=== PATIENT | female | born 1980 | race Caucasian/White ===

== ENCOUNTER 2017-02-28 09:51 | Inpatient (IN) | payer OTHER ==
[2017-02-24 12:55] VITALS: BMI 43.8
[2017-02-28] MEDS ORDERED: ACETAMINOPHEN INJECTION 100 ML IVPB ONE (10:55)
[2017-02-28] MEDS ORDERED: DEXAMETHASONE SOD PHOSPHATE 4 MG/1 ML VIAL ONE (11:25)
[2017-02-28] MEDS ORDERED: ROCURONIUM BROMIDE 50 MG/5 ML VIAL ONE (11:25)
[2017-02-28] MEDS ORDERED: PROPOFOL 20 ML ONE (11:25)
[2017-02-28] MEDS ORDERED: MIDAZOLAM HCL 2 MG/2 ML SINGLE DOSE VIAL ONE (11:25)
[2017-02-28] MEDS ORDERED: LIDOCAINE HCL/PF 2% SDV 5ML VIAL ONE (11:25)
[2017-02-28] MEDS ORDERED: ceFAZolin SODIUM 1 GM VIAL IVPB ONE (12:02)
[2017-02-28] MEDS ORDERED: LIDOCAINE HCL 2% JELLY (5 ML/TUBE) ONE (12:54)
[2017-02-28] MEDS ORDERED: NEOSTIGMINE METHYLSULFATE 0.5 MG/ML - 10 ML MDV ONE (12:57)
[2017-02-28] MEDS ORDERED: GLYCOPYRROLATE 0.2 MG/1 ML VIAL ONE ×2 (12:57)
[2017-02-28] MEDS ORDERED: ESMOLOL HCL 10 ML ONE (13:05)
[2017-02-28] MEDS ORDERED: BUPIVACAINE HCL/PF (5 MG/ML) 30 ML VIAL IJ ONE (13:35)
[2017-02-28] MEDS ORDERED: TRIMETHOBENZAMIDE HCL 200MG/2ML INJ IM PRN (13:54)
[2017-02-28] MEDS ORDERED: HYDROmorphone HCL CARPU-JECT 2 MG/1 ML DISP.SYRIN ONE (13:56)
[2017-02-28] MEDS: HYDROmorphone HCL CARPU-JECT 1 MG/1 ML DISP.SYRIN IVPB PRN ×3 (14:00→20:05)
[2017-02-28] MEDS ORDERED: METOCLOPRAMIDE HCL INJECTION 10 MG/2 ML VIAL IVPB SCH (14:00)
[2017-02-28] MEDS ORDERED: ONDANSETRON 4 MG/2 ML VIAL IVPUSH PRN (14:01)
[2017-02-28] MEDS ORDERED: HYDROmorphone HCL CARPU-JECT 1 MG/1 ML DISP.SYRIN IVPUSH PRN (14:01)
[2017-02-28] MEDS ORDERED: PROMETHAZINE HCL 25 MG/1 ML VIAL IVPUSH PRN (14:01)
[2017-02-28] MEDS ORDERED: FAMOTIDINE 20 MG/50 ML IVPB 50 ML IVPB ONE (14:12)
[2017-02-28] MEDS ORDERED: LACTATED RINGERS SOLUTION 1,000 ML IV SCH (14:15)
[2017-02-28] MEDS ORDERED: FAMOTIDINE 20 MG PREMIXED IVPB IVPB ONE (14:25)
[2017-02-28 14:46] LABS: MCH 30.2 pg (25.7-33.7); MCHC 32.8 g/dl (32.0-36.0); MEAN CELL VOLUME 92.2 fl (80-96); MEAN PLT VOLUME 7.5 fl (7.5-11.1); PLATELET COUNT 284 K/MM3 (134-434); RDW 13.8 % (11.6-15.6); WHITE BLOOD COUNT 18.6 K/mm3 (4.0-10.0)
[2017-02-28 15:17] LABS: ALBUMIN 3.5 g/dl (3.4-5.0); ANION GAP 9 (8-16); BILIRUBIN,TOTAL 0.3 mg/dL (0.2-1.0); CALCIUM 8.5 mg/dL (8.5-10.1); CO2 24 mmol/L (21-32); CREATININE 0.7 mg/dL (0.55-1.02); GLUCOSE,RANDOM 149 mg/dL (74-106); SGOT/AST 36 U/L (15-37); SGPT/ALT 37 U/L (12-78)
[2017-02-28 15:18] LABS: ALK PHOS 89 U/L (45-117)
--- NOTE | 2017-02-28 17:00 | HP ---
DATE OF ADMISSION: 02/28/2017 CHIEF COMPLAINT: Morbid obesity. HISTORY OF PRESENT ILLNESS: The patient is a 37-year-old woman with a history of morbid obesity and occasional hypertension that she had had for a long time despite multiple attempts at dietary weight loss. She received pulmonary, cardiology, nutritional evaluation and clearance prior to undergoing elective sleeve gastrectomy surgery. PAST MEDICAL HISTORY: Noncontributory except for mild sleep apnea and also occasional hypertension. Patient takes no medications. Patient has no allergies. REVIEW OF SYSTEMS: General: Within normal limits. Gastrointestinal: No nausea or vomiting. No GE reflux disease reported. Lungs: No wheezing reported. Cardiovascular: Within normal limits. Musculoskeletal: Within normal limits. Neurological: Within normal limits. PHYSICAL EXAMINATION: General: Patient is awake and alert, morbidly obese in no acute distress. HEENT: No masses palpated. Lungs: Clear bilaterally. Heart: Regular sinus rhythm. Abdomen: Positive for obesity, soft, nontender on palpation. Extremities: No edema. IMPRESSION: Morbid obesity. PLAN: Surgery for elective laparoscopic vertical sleeve gastrectomy. Mariah [id number]
[2017-02-28] MEDS: METOCLOPRAMIDE HCL INJECTION 10 MG/2 ML VIAL IVPB SCH (22:01)
[2017-02-28] MEDS: ENOXAPARIN NA (PORCINE) 40 MG/0.4 ML DISP.SYRIN SQ SCH (22:01)
[2017-02-28] MEDS: FAMOTIDINE 20 MG/50 ML IVPB 50 ML IVPB SCH (23:29)
[2017-03-01] MEDS: HYDROmorphone HCL CARPU-JECT 1 MG/1 ML DISP.SYRIN IVPB PRN ×3 (00:43→13:39)
[2017-03-01] MEDS: SODIUM CHLORIDE 1,000 ML IV SCH ×2 (03:17→13:40)
[2017-03-01] MEDS: METOCLOPRAMIDE HCL INJECTION 10 MG/2 ML VIAL IVPB SCH ×4 (03:18→21:16)
[2017-03-01 07:43] LABS: MCH 30.4 pg (25.7-33.7); MCHC 33.3 g/dl (32.0-36.0); MEAN CELL VOLUME 91.2 fl (80-96); MEAN PLT VOLUME 7.9 fl (7.5-11.1); PLATELET COUNT 286 K/MM3 (134-434); RDW 13.9 % (11.6-15.6); WHITE BLOOD COUNT 16.7 K/mm3 (4.0-10.0)
[2017-03-01 08:31] LABS: ALBUMIN 3.1 g/dl (3.4-5.0); ANION GAP 7 (8-16); CALCIUM 8.2 mg/dL (8.5-10.1); CO2 26 mmol/L (21-32); GLUCOSE,RANDOM 81 mg/dL (74-106); SGOT/AST 27 U/L (15-37); SGPT/ALT 32 U/L (12-78)
--- NOTE | 2017-03-01 08:32 | PN ---
Progress Note (short form) - Note Progress Note: Post op day#1.S/P laproscopic gastric sleeve placement under Ga uneventful.Patient stable.No any anesthesia related problem.Patient DC from the anesthesia care.
[2017-03-01 08:34] LABS: ALK PHOS 77 U/L (45-117); BILIRUBIN,TOTAL 0.7 mg/dL (0.2-1.0); CREATININE 0.5 mg/dL (0.55-1.02); TOT PROT 6.4 g/dl (6.4-8.2)
[2017-03-01] MEDS: ENOXAPARIN NA (PORCINE) 40 MG/0.4 ML DISP.SYRIN SQ SCH ×2 (09:59→21:16)
[2017-03-01] MEDS: FAMOTIDINE 20 MG/50 ML IVPB 50 ML IVPB SCH ×2 (10:00→21:16)
--- NOTE | 2017-03-01 14:23 | OP ---
DATE OF OPERATION: 02/28/2017 PREOPERATIVE DIAGNOSIS: Morbid obesity. POSTOPERATIVE DIAGNOSIS: Morbid obesity. PROCEDURES PERFORMED: 1. Laparoscopic vertical sleeve gastrectomy. 2. Diagnostic laparoscopy. OPERATING SURGEON: Angel Mcnulty MD VENUE ATTENDANT: Anjel Blakely MD ANESTHESIA: General. OPERATIVE PROCEDURE: The patient was brought into the operating room and placed on the OR table in the supine position. All precautions were taken initially, including padding for the back and the feet, and Venodyne boots were placed on both lower extremities. At that point, the abdomen was prepped and draped in the usual manner. A Veress needle was placed in the left upper quadrant and a pneumoperitoneum was established. A number 12-bladeless trocar was placed in the left upper quadrant. Through that trocar, a laparoscopic camera was placed. Under direct vision, a number 15-bladeless trocar was placed in the midline in a supraumbilical position, followed by a number 5-bladeless trocar in the right upper quadrant, and a number 5-bladeless trocar below the left costal margin. A Kevin liver retractor was then placed in the epigastrium to retract the left lobe of the liver. The patient was then placed in a 20-degree reverse Trendelenburg position and the pylorus was noted on the distal stomach. Six centimeters was measured proximal to this and here on the greater curve, the stomach was lifted up by the operating surgeon as the diversional therapist's assistant surgeon retraced the gastrocolic ligament inferiorly. The LigaSure device was used to dissect the gastrocolic ligament off the greater curve of the stomach. This continued in a superior and vertical direction, dissecting the short gastric vessels off the stomach until the final short gastric vessel between the proximal fundus and the superior pole of spleen was divided. At this juncture, Anesthesia advanced a number-40 bougie. With the bougie held along the lesser curvature, a series of osito was performed with the first two being black load osito 6 cm in length along the bougie. This was followed by a series of purple load osito firing until the final staple was fired in the left upper quadrant and the greater curve was now completely detached from the lesser curve. It should be noted that prior to firing each stapler, both the anterior and the posterior kelly were checked that they were equal and in the area of the esophagogastric junction approximately 1 to 1.5 cm of serosa remained on the anterior and posterior kelly. At this juncture, saline was placed around the staple line, after Anesthesia inserted air through the bougie, which distended the stomach all the way to the pylorus, showing no obstruction and no leaks were noted. At this juncture, the number-12 and number-15 trocar sites were closed with endo closure device to prevent internal hernia and to prevent bleeding. Under direct vision, all trocars were removed and pneumoperitoneum released. All trocar sites 0.25% Marcaine were closed with 4-0 Biosyn in subcuticular fashion. Dressings were applied. The patient was awoken from anesthesia and transferred out of the operating room into the recovery room in stable condition. ESTIMATED BLOOD LOSS: 30 mL. Mariah [id number]
[2017-03-01] MEDS ORDERED: OXYCODONE/APAP 5/325MG COMBO TABLET PO PRN (15:57)
--- NOTE | 2017-03-01 16:03 | PN ---
Progress Note (short form) - Note Progress Note: POD#1 Afebrile; VSS P-60-92 BP-131/68 Pt doing well Ambulating very well slight nausea, no vomiting WBC-16.7 H/H-13/38.9 UGI- no leak, no obstruction P- PO clear liquids- 2 oz po tid Cont ambulation Cont DVT prophylaxis
[2017-03-01] MEDS: oxyCODONE HCL 5 MG TABLET PO PRN (21:17)
[2017-03-01] MEDS: ACETAMINOPHEN 325 MG TABLET (FP) PO PRN (21:26)
[2017-03-02] MEDS: METOCLOPRAMIDE HCL INJECTION 10 MG/2 ML VIAL IVPB SCH ×2 (03:17→09:30)
[2017-03-02] MEDS: oxyCODONE HCL 5 MG TABLET PO PRN (04:22)
[2017-03-02] MEDS: ACETAMINOPHEN 325 MG TABLET (FP) PO PRN (04:23)
[2017-03-02 06:03] VITALS: BP 118/72; PULSE 89; TEMP 97.6
[2017-03-02] MEDS: FAMOTIDINE 20 MG/50 ML IVPB 50 ML IVPB SCH (09:30)
[2017-03-02] MEDS: ENOXAPARIN NA (PORCINE) 40 MG/0.4 ML DISP.SYRIN SQ SCH (09:37)
--- NOTE | 2017-03-02 16:15 | PATH ---
Surgical Pathology Report Patient Name: ADRY GARCIA [facility]. Rec. #: [id number] /Age/Gender: 1980 (Age: 37) / F Account: [id number] Location: 4 W TELEMETRY U Taken: 02/28/2017 Received: 03/01/2017 Reported: 03/02/2017 Physicians: Angel Mcnulty M.D. Specimen(s) Received GREATER CURVATURE STOMACH Clinical History Morbid obesity Final Diagnosis STOMACH, GREATER CURVATURE, SLEEVE GASTRECTOMY: PORTION OF STOMACH WITH HYPERPLASTIC POLYP AND MILD CHRONIC GASTRITIS. NO ADENOMATOUS CHANGE IS IDENTIFIED. IMMUNOSTAIN FOR H. PYLORI IS NEGATIVE. Electronically Signed Shay Connolly M.D. Gross Description Received in formalin, labeled "greater curvature of stomach," is a 107 gram, 22.0 x 10.0 x 2.5 cm. portion of stomach with a stapled margin of resection. The serosa is walton-sandy with minimal attached fat. Sectioning reveals a 0.4 x 0.4 x 0.2 cm walton possible mucosal polyp. The remaining mucosa is walton with focally flattened folds. Chief Engineer [employer] sections are submitted in 2 cassettes as follows: 1-possible polyp; 2-additional warehouse representative stomach. /03/01/2017 [facility]03/01/2017
== END 2017-03-02 09:58 | disposition home or self-care (01) | DRG 621 ==
LOC: JSAMEDAYSX 09:51 → J4W 18:51
PROVIDERS: ADMIT Surgery; ATTEND Surgery
PROC: 0WJP4ZZ Inspection of Gastrointestinal Tract, Percutaneous Endoscopic Approach (ICD-10-PCS; 2017-02-28)
PROC: 0DB64Z3 Excision of Stomach, Percutaneous Endoscopic Approach, Vertical (ICD-10-PCS; principal; 2017-02-28 11:15)
DX: E66.01 Morbid (severe) obesity due to excess calories (principal); Z68.41 Body mass index [BMI] 40.0-44.9, adult; K29.50 Unspecified chronic gastritis without bleeding; I10 Essential (primary) hypertension
CPT/HCPCS: 36415; 74241-TC; 80053; 84703; 85027; 86850; 86900; 86901; 88305-TC; 94010; 94760